=== PATIENT | female | born 1935 | race Caucasian/White ===

== ENCOUNTER 2018-12-28 11:46 | Day surgery (SDC) | payer MEDICARE ==
[~2018-12-28] VITALS: Ht 162.6 cm; Wt 92.5 kg
--- NOTE | ~2018-12-28 | OR ---
[facility] [address] [place], [place] [address] Draft DATE OF OPERATION: 12/28/2018 SURGEON: Laly Murillo MD PREOPERATIVE DIAGNOSES: 1. Diarrhea. 2. Normal colonoscopy in 2002. POSTOPERATIVE DIAGNOSES: Sigmoid and left-sided diverticulosis. No evidence of colitis or polyps. PROCEDURE PERFORMED: Total colonoscopy to cecum with biopsy of rectum. ANESTHESIA: Intravenous sedation, fentanyl 100 mcg and Versed 5 mg. INDICATION: An 83-year-old white woman, a patient of Dr. Matt Mariano, has complaints of diarrhea. There is no associated bleeding. She last underwent colonoscopy in 2002, which was normal. She has no family history of colon cancer. She does have a knee replacement, for which preoperative antibiotics were given. She is admitted to undergo colonoscopy. She understands the risks of bleeding, infection, and perforation. FINDINGS: The prep was good. Complete colonoscopy was undertaken to the cecum without question. There was no sign of polyps or colitis. She did have diverticulosis of the sigmoid and left colon rather extensively. There was no proctitis and biopsies obtained of the rectum nevertheless on the basis of her diarrhea. DESCRIPTION OF PROCEDURE: The patient was brought to the endoscopy suite, placed in a lateral decubitus position, and given intravenous sedation to the point of slurred speech and nystagmus. Digital rectal examination was normal. An Olympus video colonoscope was passed in the rectum and manipulated throughout the colon noting extensive diverticular changes of the sigmoid and left colon. Ultimately, the scope was passed beyond this to the cecum. The ileocecal valve was normal. The scope was withdrawn from the cecum and examination throughout upon withdrawal of scope showed no sign of abnormality other than the diverticulosis. The rectum was normal. PATIENT NAME: ANYA LO OPERATIVE REPORT DATE OF : 35 REPORT #: [id number] PHYSICIAN: LALY MURILLO MD PCP: MATT MARIANO MD REPORT IS CONFIDENTIAL AND NOT TO BE RELEASED WITHOUT AUTHORIZATION [facility] [address] [place], [place] [address] Draft Biopsies were obtained nevertheless. The scope was removed after retroflexed view was found to be normal. She was taken to the recovery room in good condition. CONCLUDING DIAGNOSIS: Diverticulosis. No evidence of colitis or polyps or cancer. PLAN: Recommend high-fiber diet or Citrucel one scoop daily as a fiber supplement. She will return to the ongoing care of Dr. Mariano. MD CARRILLO Lin/RADHA /[id number] cc: Matt Mariano MD Copies: MATT MARIANO MD ~ PATIENT NAME: ANYA LO OPERATIVE REPORT DATE OF : 35 REPORT #: [id number] PHYSICIAN: LALY MURILLO MD PCP: MATT MARIANO MD REPORT IS CONFIDENTIAL AND NOT TO BE RELEASED WITHOUT AUTHORIZATION
[~2018-12-28 11:46] MED LIST: AMILORIDE HCL-H1 TAB PO; ASPIR 8181 MG PO; AVASTIN25 MG/1 ML IV; ICAPS AREDS SO1 EACH PO; METRONIDAZOLE TOP
--- NOTE | 2018-12-28 13:13 | NUR ---
12/28/18 1313 Kerri Mendenhall 1307- PT ARRIVES TO PACU ALERT AND ORIENTED. PT REPORTS NO PAIN OR NAUSEA. RESP EVEN AND UNLABORED. OXYGEN SAT HIGH 90'S TO 100% ON 2L VIA NC. 1310- PT PASSING FLATUS. 1313- OXYGEN TITRATED OFF.
== END 2018-12-28 13:55 | disposition home or self-care (01) ==
LOC: OPS 11:46 → DS 11:46 → OPS 13:00
PROVIDERS: Surgery
PROC: 0DBP8ZX Excision of Rectum, Via Natural or Artificial Opening Endoscopic, Diagnostic (ICD-10-PCS; principal; 2018-12-28 13:00)
DX: R19.7 Diarrhea, unspecified (principal); K57.30 Diverticulosis of large intestine without perforation or abscess without bleeding; I10 Essential (primary) hypertension; Z98.890 Other specified postprocedural states; Z88.2 Allergy status to sulfonamides; Z88.1 Allergy status to other antibiotic agents; Z91.012 Allergy to eggs
CPT/HCPCS: G0500; J0694; J2250; J3010; J7060; J7120